=== PATIENT | male | born 1960 | race Caucasian/White ===

== ENCOUNTER 2019-04-01 05:32 | Inpatient (IN) | payer OTHER ==
[2019-04-01] MEDS ORDERED: KETOROLAC 30 MG INJ (06:32)
[2019-04-01] MEDS ORDERED: MIDAZOLAM 1 MG/ML 2 ML INJ (06:32)
[2019-04-01] MEDS ORDERED: CEFAZOLIN 1 GM INJ (06:32)
[2019-04-01] MEDS ORDERED: ONDANSETRON 4 MG INJ (06:32)
[2019-04-01] MEDS ORDERED: PROPOFOL 20 ML (06:32)
[2019-04-01] MEDS: ONDANSETRON 4 MG INJ IV ×4 (06:57→23:30)
[2019-04-01] MEDS: LANSOPRAZOLE 30 MG CAP PO (06:57)
[2019-04-01] MEDS: LACTATED RINGER'S 1,000 ML IV ×2 (06:58→07:00)
[2019-04-01] MEDS: oxyCODONE (CR) 10 MG TAB [oxyCONTIN] PO (06:58)
[2019-04-01] MEDS: DEXAMETHASONE 4 MG/ML 1 ML INJ IV (06:58)
[2019-04-01] MEDS ORDERED: ACETAMINOPHEN 500 MG TAB PO (07:00)
[2019-04-01] MEDS: TRANEXAMIC ACID 1GM/100ML(PMX) 100 ML PRE-OP X1 IVPB (07:00)
[2019-04-01] MEDS: ACETAMINOPHEN 1000MG/100ML IV 100 ML IVPB (07:00)
[2019-04-01] MEDS ORDERED: ONDANSETRON 4 MG INJ IV (07:00)
[2019-04-01] MEDS: CEFAZOLIN 1 GM/50 ML (PMX) 50 ML IVPB (07:00)
[2019-04-01] MEDS ORDERED: HIP PAIN COCKTAIL (CEFUROXIME) INJ (07:00)
[2019-04-01] MEDS ORDERED: FENTAnyl 50 MCG/ML VIAL IV (07:00)
[2019-04-01] MEDS: TRANEXAMIC ACID 1GM/100ML(PMX) 100 ML INTRA-OP X1 IVPB (07:00)
[2019-04-01] MEDS ORDERED: TRANEXAMIC ACID 1GM/100ML(PMX) 200 ML (07:23)
[2019-04-01] MEDS: HIP PAIN COCKTAIL VANCO INJ (09:19)
[2019-04-01] MEDS: BACITRACIN 50000 UNITS INJ IRR (09:19)
[2019-04-01] MEDS: POLYMYXIN B 500000 UNIT INJ (09:19)
[2019-04-01] MEDS ORDERED: NACL 0.9% 3 ML SYG IV (11:00)
[2019-04-01] MEDS ORDERED: NALOXONE (0.4 MG/ML) INJ IV (11:00)
[2019-04-01] MEDS: DOCUSATE SODIUM 100 MG CAP PO (11:32)
[2019-04-01] MEDS: HYDROmorphONE 1 MG/5 ML IV SYRINGE IV (11:57)
[2019-04-01] MEDS: GABAPENTIN 100 MG CAP PO ×2 (14:12→20:46)
[2019-04-01] MEDS: oxyCODONE 5 MG TAB PO ×2 (14:12→18:48)
[2019-04-01] MEDS: SOD CHLORIDE 0.9% 1,000 ML IV (16:55)
[2019-04-01] MEDS: CEFAZOLIN 2 GM/50 ML (PMX) 50 ML IVPB (18:17)
[2019-04-01] MEDS: traZODone 50 MG TAB PO (20:46)
[2019-04-02] MEDS: oxyCODONE 5 MG TAB PO ×4 (01:14→14:01)
[2019-04-02] MEDS: CEFAZOLIN 2 GM/50 ML (PMX) 50 ML IVPB ×2 (01:15→08:48)
[2019-04-02] MEDS: ONDANSETRON 4 MG INJ IV (05:14)
[2019-04-02 05:18] LABS: ADD MAN DIFF? NO
[2019-04-02] MEDS: PANTOPRAZOLE (EC) 40 MG TAB PO (05:20)
[2019-04-02 05:24] LABS: WHITE BLOOD COUNT 10.9 10^3/ul (4.8-10.8)
[2019-04-02 05:24] LABS: BASOPHILS % 0.3 % (0.0-2.0); EOSINOPHILS # 0.1 10^3/ul (0.0-0.5); EOSINOPHILS % 0.6 % (0.0-7.0); HEMATOCRIT 24.7 % (42.0-52.0); HEMOGLOBIN 8.4 g/dl (14.0-18.0); LYMPHOCYTES # 1.7 10^3/ul (0.8-2.9); LYMPHOCYTES % 15.6 % (15.0-51.0); MEAN CORPUSCULAR HEMOGLOBIN 29.2 pg (29.0-33.0); MEAN CORPUSCULAR VOLUME 85.8 fl (82.0-101.0); MEAN PLATELET VOLUME 10.3 fl (7.4-10.4); MONOCYTE # 1.1 10^3/ul (0.3-0.9); MONOCYTES % 10.4 % (0.0-11.0); NEUTROPHIL # 7.9 10^3/ul (1.6-7.5); NEUTROPHILS % 72.6 % (39.0-77.0); PLATELET COUNT 177 10^3/UL (140-415); RED BLOOD COUNT 2.88 10^6/ul (4.70-6.10); RED CELL DISTRIBUTION WIDTH 13.6 % (11.5-14.5)
[2019-04-02 05:39] LABS: INR 1.31; PROTIME 16.4 Sec (11.9-14.9); PT RATIO 1.3
[2019-04-02 05:51] LABS: ANION GAP 3 (5-13); BLOOD UREA NITROGEN 13 mg/dl (7-20); CALCIUM 7.3 mg/dl (8.4-10.2); CARBON DIOXIDE 28 mmol/L (21-31); CHLORIDE 109 mmol/L (97-110); CREATININE 0.65 mg/dl (0.61-1.24); Estimated GFR > 60 mL/min (>60); GLUCOSE 119 mg/dl (70-220); POTASSIUM 3.8 mmol/L (3.5-5.1); SODIUM 140 mmol/L (135-144)
[2019-04-02] MEDS: ASPIRIN (EC) 81 MG TAB PO ×2 (08:47→21:00)
[2019-04-02] MEDS: CELECOXIB 100 MG CAP PO ×2 (08:48→21:00)
[2019-04-02] MEDS: GABAPENTIN 100 MG CAP PO ×3 (08:48→21:00)
[2019-04-02 15:56] LABS: PROTIME 16.3 Sec (11.9-14.9)
[2019-04-02 16:09] LABS: COLLAGEN/EPI 103 Secs. (51-198)
[2019-04-02 18:32] LABS: 50/50 PROTIME 1 HOUR 14.1 Sec; 50/50 PT IMMED 14.1 Sec
[2019-04-02 18:33] LABS: 50/50 PROTIME CONCLUSION CORRECTED
[2019-04-02] MEDS: KETOROLAC 15 MG INJ IV (19:35)
[2019-04-02] MEDS: traZODone 50 MG TAB PO (21:00)
[2019-04-02] MEDS: POLYETHYLENE GLYCOL 17 GM PACKET PO (21:42)
[2019-04-02] MEDS: DOCUSATE SODIUM 100 MG CAP PO (21:42)
[2019-04-03] MEDS: KETOROLAC 15 MG INJ IV (04:27)
[2019-04-03 05:21] LABS: ADD MAN DIFF? NO
[2019-04-03 05:29] LABS: WHITE BLOOD COUNT 7.2 10^3/ul (4.8-10.8)
[2019-04-03 05:29] LABS: BASOPHILS % 0.4 % (0.0-2.0); EOSINOPHILS # 0.2 10^3/ul (0.0-0.5); EOSINOPHILS % 2.5 % (0.0-7.0); HEMATOCRIT 22.2 % (42.0-52.0); HEMOGLOBIN 7.5 g/dl (14.0-18.0); LYMPHOCYTES # 1.8 10^3/ul (0.8-2.9); LYMPHOCYTES % 25.7 % (15.0-51.0); MEAN CORPUSCULAR HEMOGLOBIN 29.1 pg (29.0-33.0); MEAN CORPUSCULAR HGB CONC 33.8 g/dl (32.0-37.0); MEAN PLATELET VOLUME 10.5 fl (7.4-10.4); MONOCYTE # 0.9 10^3/ul (0.3-0.9); MONOCYTES % 12.1 % (0.0-11.0); NEUTROPHIL # 4.2 10^3/ul (1.6-7.5); PLATELET COUNT 152 10^3/UL (140-415); RED BLOOD COUNT 2.58 10^6/ul (4.70-6.10); RED CELL DISTRIBUTION WIDTH 13.6 % (11.5-14.5)
[2019-04-03] MEDS: PANTOPRAZOLE (EC) 40 MG TAB PO (05:40)
[2019-04-03 05:57] LABS: INR 1.19; PROTIME 15.2 Sec (11.9-14.9); PT RATIO 1.2
[2019-04-03 06:19] LABS: ANION GAP 3 (5-13); BLOOD UREA NITROGEN 12 mg/dl (7-20); CALCIUM 7.5 mg/dl (8.4-10.2); CARBON DIOXIDE 30 mmol/L (21-31); CHLORIDE 109 mmol/L (97-110); CREATININE 0.58 mg/dl (0.61-1.24); Estimated GFR > 60 mL/min (>60); GLUCOSE 93 mg/dl (70-220); POTASSIUM 3.8 mmol/L (3.5-5.1); SODIUM 142 mmol/L (135-144)
[2019-04-03] MEDS: oxyCODONE 5 MG TAB PO ×2 (08:45→16:42)
[2019-04-03] MEDS: GABAPENTIN 100 MG CAP PO ×3 (08:45→20:51)
[2019-04-03] MEDS: DOCUSATE SODIUM 100 MG CAP PO ×2 (08:45→20:51)
[2019-04-03] MEDS: CELECOXIB 100 MG CAP PO ×2 (08:45→20:51)
[2019-04-03] MEDS: ASPIRIN (EC) 81 MG TAB PO ×2 (08:45→20:51)
[2019-04-03] MEDS: BISACODYL 10 MG SUPP PR (13:04)
[2019-04-03] MEDS: POLYETHYLENE GLYCOL 17 GM PACKET PO (17:36)
[2019-04-03] MEDS: traZODone 50 MG TAB PO (20:51)
[2019-04-03] MEDS: NA PHOSPHATE/BIPHOS 133 ML ENEMA PR (20:56)
[2019-04-04] MEDS: PANTOPRAZOLE (EC) 40 MG TAB PO (05:03)
[2019-04-04] MEDS: oxyCODONE 5 MG TAB PO ×3 (05:04→14:10)
[2019-04-04 05:29] LABS: ADD MAN DIFF? NO
[2019-04-04 05:37] LABS: WHITE BLOOD COUNT 6.2 10^3/ul (4.8-10.8)
[2019-04-04 05:37] LABS: BASOPHILS % 0.5 % (0.0-2.0); EOSINOPHILS # 0.3 10^3/ul (0.0-0.5); EOSINOPHILS % 4.4 % (0.0-7.0); HEMOGLOBIN 7.4 g/dl (14.0-18.0); LYMPHOCYTES # 1.7 10^3/ul (0.8-2.9); LYMPHOCYTES % 28.1 % (15.0-51.0); MEAN CORPUSCULAR HEMOGLOBIN 28.9 pg (29.0-33.0); MEAN CORPUSCULAR HGB CONC 33.6 g/dl (32.0-37.0); MEAN CORPUSCULAR VOLUME 85.9 fl (82.0-101.0); MEAN PLATELET VOLUME 10.5 fl (7.4-10.4); MONOCYTE # 0.6 10^3/ul (0.3-0.9); MONOCYTES % 9.9 % (0.0-11.0); NEUTROPHIL # 3.5 10^3/ul (1.6-7.5); NEUTROPHILS % 56.6 % (39.0-77.0); PLATELET COUNT 155 10^3/UL (140-415); RED BLOOD COUNT 2.56 10^6/ul (4.70-6.10); RED CELL DISTRIBUTION WIDTH 13.6 % (11.5-14.5)
[2019-04-04 05:46] LABS: INR 1.13; PROTIME 14.6 Sec (11.9-14.9); PT RATIO 1.1
[2019-04-04 06:05] LABS: ANION GAP 3 (5-13); BLOOD UREA NITROGEN 9 mg/dl (7-20); CALCIUM 7.6 mg/dl (8.4-10.2); CARBON DIOXIDE 30 mmol/L (21-31); CHLORIDE 108 mmol/L (97-110); CREATININE 0.55 mg/dl (0.61-1.24); Estimated GFR > 60 mL/min (>60); GLUCOSE 96 mg/dl (70-220); SODIUM 141 mmol/L (135-144)
[2019-04-04] MEDS: GABAPENTIN 100 MG CAP PO ×2 (09:08→14:05)
[2019-04-04] MEDS: ASPIRIN (EC) 81 MG TAB PO (09:08)
[2019-04-04] MEDS: CELECOXIB 100 MG CAP PO (09:08)
[2019-04-04] MEDS: DOCUSATE SODIUM 100 MG CAP PO (09:08)
== END 2019-04-04 18:00 | disposition home health service (06) | DRG 470 ==
LOC: REC 05:32 → MS1 13:08
PROC: 0SR904A Replacement of Right Hip Joint with Ceramic on Polyethylene Synthetic Substitute, Uncemented, Open Approach (ICD-10-PCS; principal; 2019-04-01 07:19)
DX: M16.11 Unilateral primary osteoarthritis, right hip (principal); B18.2 Chronic viral hepatitis C; G47.00 Insomnia, unspecified; E86.1 Hypovolemia; R00.0 Tachycardia, unspecified; Z79.82 Long term (current) use of aspirin; Z87.891 Personal history of nicotine dependence
CPT/HCPCS: 72170; 73500; 73530; 80048; 85025; 85335; 85384; 85576; 85610; 86850; 86900; 86901; 86920; 88304; 88311; 97116; 97161; 97165; 97530; 97535